=== PATIENT | female | born 1955 | race Caucasian/White ===

== ENCOUNTER 2020-03-20 06:20 | Day surgery (SDC) | payer MEDICAID ==
[2020-03-20] MEDS ORDERED: Sodium Chloride 0.9% 1,000 ML IV SCH (07:10)
[2020-03-20] MEDS ORDERED: Midazolam 1 MG/ML 2 ML SDV ONE (07:32)
[2020-03-20] MEDS ORDERED: Propofol 200 MG/20 ML SDV ONE (07:32)
[2020-03-20] MEDS ORDERED: fentaNYL 100 MCG/2 ML SDV ONE (07:32)
[2020-03-20] MEDS ORDERED: Ondansetron 4 MG/2 ML SDV ONE (07:32)
--- NOTE | 2020-03-20 10:05 | OR ---
DATE OF PROCEDURE: 03/20/2020 SURGEON: Lloyd Moreno MD PROCEDURE: Colonoscopy. FINDINGS: Ascending colon polyp of approximately 5 mm, completely removed using cold biopsy forceps. COMPLICATION: None. CONSTRUCTION ASSISTANT: None. ANESTHESIA: MAC. PREOPERATIVE DIAGNOSIS: Screening colonoscopy. POSTOPERATIVE DIAGNOSIS: Screening colonoscopy. RISKS: Risks, benefits, alternatives, and limitations including, but not limited to, infection, bleeding, and perforation were explained to the patient who wished to proceed. PROCEDURE IN DETAIL: The patient was placed left lateral decubitus position. Digital rectal exam was performed without abnormality. Scope was introduced and advanced atraumatically to the ileocecal valve. The scope was brought back through the ascending, transverse, descending colon, and retroflexed. No evidence of old or new blood. No masses. The aforementioned polyp was identified and completely removed using cold biopsy forceps. No abnormalities on retroflex. The patient tolerated the procedure well. Lloyd Moreno MD /[id number]
== END 2020-03-20 09:40 | disposition home or self-care (01) ==
LOC: JP.SDS 06:20
PROVIDERS: ATTEND Surgery
DX: Z12.11 Encounter for screening for malignant neoplasm of colon (principal); D12.2 Benign neoplasm of ascending colon; I10 Essential (primary) hypertension; E66.9 Obesity, unspecified; K21.9 Gastro-esophageal reflux disease without esophagitis; Z68.36 Body mass index [BMI] 36.0-36.9, adult
CPT/HCPCS: 45380; J2250; J2405; J2704; J3010; J7030; 88305

== ENCOUNTER 2020-08-17 09:06 | Emergency (ER) | payer MEDICAID ==
--- NOTE | 2020-08-17 11:06 | EDM.PDOC ---
ED HPI GENERAL MEDICAL PROBLEM - General Chief Complaint: General Stated Complaint: MAYBE COVID?? Time Seen by Provider: 08/17/20 10:59 Source of Information: Reports: Patient History Limitations: Reports: No Limitations - History of Present Illness INITIAL COMMENTS - FREE TEXT/NARRATIVE: pt had a fever for 3 days early last week. She has not had a fever now. Her is covid positive. She appears to have some sinus congestion. Onset: Gradual Duration: Hour(s): Location: Reports: Head, Face Associated Symptoms: Reports: Other ( mainly nasal ans sinus type congestion) - Related Data Allergies Allergy/AdvReac Type Severity Reaction Status Date / Time No Known Allergies Allergy Verified 03/20/20 06:46 Home Meds: Home Meds Calcium Carbonate 600 mg PO DAILY 03/04/14 [History] Ibuprofen [Advil] 200 mg PO Q6H PRN 03/04/14 [History] Lisinopril [Zestril] 10 mg PO DAILY 03/04/14 [History] Rosuvastatin Calcium 10 mg PO DAILY 03/10/20 [History] Past Medical History Cardiovascular History: Reports: High Cholesterol, Hypertension Gastrointestinal History: Reports: Other (See Below) Other Gastrointestinal History: heartburn BULB SORTER History: Reports: , Other (See Below) Other BULB SORTER History: ovarian cyst Musculoskeletal History: Reports: Other (See Below) Other Musculoskeletal History: bilateral shoulder and left knee pain Endocrine/Metabolic History: Reports: Obesity/BMI 30+ - Infectious Disease History Infectious Disease History: Reports: Chicken Pox - Past Surgical History Head Surgeries/Procedures: Reports: None GI Surgical History: Reports: Colonoscopy Female Surgical History: Reports: Hysterectomy, Other (See Below) Other Female Surgeries/Procedures: bladder lift Musculoskeletal Surgical History: Reports: Knee Replacement Social & Family History - Tobacco Use Smoking Status *Q: Never Smoker - Caffeine Use Caffeine Use: Reports: Coffee, Soda - Recreational Drug Use Recreational Drug Use: No ED ROS GENERAL - Review of Systems Review Of Systems: See Below Constitutional: Reports: Fever HEENT: Reports: Sinus Problem Respiratory: Reports: No Symptoms Cardiovascular: Reports: No Symptoms Endocrine: Reports: No Symptoms GI/Abdominal: Reports: No Symptoms : Reports: No Symptoms Musculoskeletal: Reports: No Symptoms Skin: Reports: No Symptoms ED EXAM, GENERAL - Physical Exam Exam: See Below Free Text/Narrative:: pt arrived with a history of sinus congestion,. Early last week she ran a temp for 2-3 days. She no longer has a fever. Her was covid positive. Exam Limited By: No Limitations General Appearance: Alert Ears: Normal TMs Nose: Normal Inspection Throat/Mouth: Normal Inspection Head: Atraumatic Neck: Normal Inspection Respiratory/Chest: No Respiratory Distress Course - Vital Signs Last Recorded V/S: Last Vital Signs Temp 35.5 C L 08/17/20 09:13 Pulse 86 08/17/20 09:13 Resp 18 08/17/20 09:13 BP 157/101 H 08/17/20 09:13 Pulse Ox 96 08/17/20 09:13 - Orders/Labs/Meds Orders: Active Orders 24 hr Category Date Time Status CORONAVIRUS COVID-19, AVTAR Stat Lab 08/17/20 10:58 Ordered CULTURE URINE [RM] Stat Lab 08/17/20 10:40 Received Labs: Laboratory Tests 08/17/20 08/17/20 08/17/20 Range/Units 09:33 09:48 09:48 WBC 5.0 (4.5-11.0) K/uL RBC 4.51 (3.30-5.50) M/uL Hgb 14.0 (12.0-15.0) g/dL Hct 43.8 (36.0-48.0) % MCV 97 (80-98) fL MCH 31 (27-31) pg MCHC 32 (32-36) % Plt Count 231 (150-400) K/uL Neut % (Auto) 51 (36-66) % Lymph % (Auto) 38 (24-44) % [place] % (Auto) 9 H (2-6) % Eos % (Auto) 2 (2-4) % Baso % (Auto) 0 (0-1) % Sodium 138 L (140-148) mmol/L Potassium 3.9 (3.6-5.2) mmol/L Chloride 103 (100-108) mmol/L Carbon Dioxide 28 (21-32) mmol/L Anion Gap 10.9 (5.0-14.0) mmol/L BUN 9 (7-18) mg/dL Creatinine 1.0 (0.6-1.0) mg/dL Est Cr Clr Drug Dosing 51.14 mL/min Estimated GFR (MDRD) 56 L (>60) Glucose 123 H (74-106) mg/dL Calcium 8.8 (8.5-10.1) mg/dL Total Bilirubin 0.4 (0.2-1.0) mg/dL AST 20 (15-37) U/L ALT 26 (12-78) U/L Alkaline Phosphatase 66 (46-116) U/L Total Protein 7.0 (6.4-8.2) g/dL Albumin 3.7 (3.4-5.0) g/dL Globulin 3.3 (2.3-3.5) g/dL Albumin/Globulin Ratio 1.1 L (1.2-2.2) Urine Color Yellow (YELLOW) Urine Appearance Slightly cloudy A (CLEAR) Urine pH 6.5 (5.0-8.0) Ur Specific [place] > 1.030 (1.008-1.030) Urine Protein Negative (NEGATIVE) mg/dL Urine Glucose (UA) Negative (NEGATIVE) mg/dL Urine Ketones Negative (NEGATIVE) mg/dL Urine Occult Blood Trace-intact H (NEGATIVE) Urine Nitrite Negative (NEGATIVE) Urine Bilirubin Negative (NEGATIVE) Urine Urobilinogen 0.2 (0.2-1.0) EU/dL Ur Leukocyte Esterase Trace H (NEGATIVE) Urine RBC 0-5 (0-5) Urine WBC 5-10 H (0-5) Ur Epithelial Cells Moderate Amorphous Sediment Occasional Urine Bacteria Moderate Urine Mucus Rare - Re-Assessments/Exams Free Text/Narrative Re-Assessment/Exam: 08/17/20 11:02 wbc is not elevated. Her chems look good, she does not have a fever. 08/17/20 11:03 pt will have a covid send out test today. Departure - Departure Time of Disposition: 11:03 Disposition: Home, Self-Care 01 Condition: Fair Clinical Impression: Nasal congestion - Discharge Information Referrals: PCP,None [Primary Care Provider] - Care Plan Goals: will notify of the covid test, push fluids tylenol and motrin. Sepsis Event Note (ED) - Evaluation Sepsis Screening Result: No Definite Risk - Focused Exam Vital Signs: Vital Signs Temp Pulse Resp BP Pulse Ox 08/17/20 09:13 35.5 C L 86 18 157/101 H 96 - My Orders Last 24 Hours: My Active Orders 08/17/20 10:40 CULTURE URINE [RM] Stat 08/17/20 10:58 CORONAVIRUS COVID-19, AVTAR Stat - Assessment/Plan Last 24 Hours: My Active Orders 08/17/20 10:40 CULTURE URINE [RM] Stat 08/17/20 10:58 CORONAVIRUS COVID-19, AVTAR Stat
== END 2020-08-17 11:23 | disposition home or self-care (01) ==
LOC: JP.ED 09:06
DX: R09.81 Nasal congestion (principal); E78.00 Pure hypercholesterolemia, unspecified; I10 Essential (primary) hypertension; E66.9 Obesity, unspecified; Z68.37 Body mass index [BMI] 37.0-37.9, adult; Z20.828 Contact with and (suspected) exposure to other viral communicable diseases
CPT/HCPCS: 36415; 80053; 81001; 85025; 87086; 87088; 87186; 99283; U0002

== ENCOUNTER 2022-11-14 07:27 | Inpatient (IN) | payer MEDICARE ==
[~2022-11-14 07:27] MED LIST: Bupivacaine 0.5% 30 ML SDV ONE
[2022-11-14] MEDS ORDERED: Nozin Nasal Sanitizer NASBOTH ONE (07:30)
[2022-11-14] MEDS ORDERED: fentaNYL 100 MCG/2 ML SDV ONE (07:53)
[2022-11-14] MEDS ORDERED: Propofol 200 MG/20 ML SDV ONE ×2 (07:53→10:53)
[2022-11-14] MEDS ORDERED: Midazolam 1 MG/ML 2 ML SDV ONE (07:53)
[2022-11-14] MEDS ORDERED: Lactated Ringers 1,000 ML IV SCH (08:00)
[2022-11-14] MEDS ORDERED: ceFAZolin 2 GM in Sodium Chloride 0.9% 50 ML IV ONE (08:00)
[2022-11-14] MEDS ORDERED: ceFAZolin 2 GM in Sodium Chloride 0.9% 100 ML IV ONE (08:00)
[2022-11-14 08:10] LABS: ESTIMATED GFR 71 mL/min (>60)
[2022-11-14] MEDS ORDERED: Ondansetron 4 MG/2 ML SDV ONE (10:34)
[2022-11-14] MEDS ORDERED: Lactated Ringers 1,000 ML ONE (11:10)
[2022-11-14] MEDS ORDERED: Magnesium Hydroxide 400 MG/5 ML Susp 30 ML Cup PO PRN (12:00)
[2022-11-14] MEDS ORDERED: traMADol 50 MG Tab PO PRN (12:00)
[2022-11-14] MEDS ORDERED: Morphine 2 MG/ML SYRINGE IVPUSH PRN (12:00)
[2022-11-14] MEDS ORDERED: Ondansetron 4 MG/2 ML SDV IVPUSH PRN (12:00)
[2022-11-14] MEDS ORDERED: oxyCODONE 5 MG Tab PO PRN (12:06)
[2022-11-14] MEDS: Acetaminophen 325 MG Tab PO SCH ×2 (13:24→18:03)
[2022-11-14] MEDS: Ketorolac 15 MG/ML SDV IVPUSH SCH ×2 (13:24→21:10)
[2022-11-14] MEDS: ceFAZolin 1 GM in Premix Bag 1 BAG IV SCH (17:10)
[2022-11-14] MEDS: Sodium Chloride 0.9% 1,000 ML IV SCH (18:05)
[2022-11-14] MEDS ORDERED: Nozin Nasal Sanitizer NASBOTH SCH (21:00)
[2022-11-14] MEDS: Docusate Sodium 100 MG Cap PO SCH (21:08)
[2022-11-14] MEDS: Nozin Nasal Sanitizer NASBOTH SCH (22:11)
[2022-11-15] MEDS: Acetaminophen 325 MG Tab PO SCH ×4 (01:53→19:51)
[2022-11-15] MEDS: ceFAZolin 1 GM in Premix Bag 1 BAG IV SCH (01:54)
[2022-11-15] MEDS: Sodium Chloride 0.9% 1,000 ML IV SCH (02:04)
[2022-11-15] MEDS: Ketorolac 15 MG/ML SDV IVPUSH SCH ×2 (05:50→13:19)
[2022-11-15] MEDS: Nozin Nasal Sanitizer NASBOTH SCH ×2 (08:43→21:18)
[2022-11-15] MEDS: Lisinopril 10 MG Tab PO SCH (08:43)
[2022-11-15] MEDS: Docusate Sodium 100 MG Cap PO SCH ×2 (08:43→21:18)
[2022-11-15] MEDS: Rosuvastatin 10 MG Tab PO SCH (08:43)
[2022-11-16] MEDS: Acetaminophen 325 MG Tab PO SCH ×2 (02:07→08:10)
[2022-11-16] MEDS: Rosuvastatin 10 MG Tab PO SCH (08:11)
[2022-11-16] MEDS: Docusate Sodium 100 MG Cap PO SCH (08:11)
[2022-11-16] MEDS: Nozin Nasal Sanitizer NASBOTH SCH (08:11)
[2022-11-16] MEDS: Lisinopril 10 MG Tab PO SCH (08:11)
== END 2022-11-16 11:30 | disposition home or self-care (01) | DRG 470 ==
LOC: JP.SDS 07:27 → JP.MS 12:00 → JP.SDS 11-15 13:38 → JP.MS 11-15 13:40
PROVIDERS: ADMIT Specialist; ATTEND Specialist
PROC: 0SRD0J9 Replacement of Left Knee Joint with Synthetic Substitute, Cemented, Open Approach (ICD-10-PCS; principal; 2022-11-14)
DX: M17.12 Unilateral primary osteoarthritis, left knee (principal); I10 Essential (primary) hypertension; E78.5 Hyperlipidemia, unspecified; E66.9 Obesity, unspecified; Z79.899 Other long term (current) drug therapy
CPT/HCPCS: 36415; 73560-LT; 80053; 85027; 97110-GP; 97116-GP; 97161-GP; 97165-GO; 97530-GP; 97535-GO; A9270-GY; C1713; C1776; J0690; J1885; J2250; J2405; J2704; J3010; J3490; J7030; J7120

== ENCOUNTER 2023-07-05 05:55 | Day surgery (SDC) | payer MEDICARE ==
[2023-07-05 06:20] LABS: HEMATOCRIT 39.9 % (34.3-46.0); HEMOGLOBIN 13.7 g/dL (11.2-15.5); MEAN CORPUSCULAR HEMOGLOBIN 32.6 pg (31.6-35.5); MEAN CORPUSCULAR HGB CONC 34.3 g/dL (31.6-35.5); RED BLOOD CELL COUNT 4.2 M/uL (3.77-5.24); WHITE BLOOD CELL COUNT,WBC 6.1 K/uL (3.2-11.0)
[2023-07-05] MEDS ORDERED: Nozin Nasal Sanitizer NASBOTH ONE (06:30)
[2023-07-05] MEDS ORDERED: Lactated Ringers 1,000 ML IV SCH (06:30)
[2023-07-05 06:36] LABS: A/G RATIO 1.1 (1.2-2.2); ALANINE AMINOTRANSFERASE,ALT 28 U/L (12-78); ALBUMIN 3.7 g/dL (3.4-5.0); ALKALINE PHOSPHATASE 99 U/L (46-116); ASPARTATE AMNIOTRANSFERASE,AST 17 U/L (15-37); BILIRUBIN TOTAL 0.6 mg/dL (0.2-1.0); BLOOD UREA NITROGEN,BUN 16 mg/dL (7-18); CALCIUM 8.6 mg/dL (8.5-10.1); CARBON DIOXIDE,CO2 27 mmol/L (21-32); CHLORIDE,CL 104 mmol/L (100-108); CREATININE 0.9 mg/dL (0.6-1.0); ESTIMATED GFR 70 mL/min (>60); GLUCOSE RANDOM 137 mg/dL (74-106); POTASSIUM,K 3.9 mmol/L (3.6-5.2); SODIUM,NA 139 mmol/L (140-148)
[2023-07-05 06:39] LABS: ANION GAP 11.9 mmol/L (5.0-14.0)
[2023-07-05] MEDS ORDERED: Bupivacaine 0.5% 30 ML SDV ONE (06:56)
[2023-07-05] MEDS ORDERED: ceFAZolin 2 GM in Premix Bag 1 BAG IV ONE (07:00)
[2023-07-05] MEDS ORDERED: Propofol 200 MG/20 ML SDV ONE (07:23)
[2023-07-05] MEDS ORDERED: Midazolam 1 MG/ML 2 ML SDV ONE (07:23)
[2023-07-05] MEDS ORDERED: fentaNYL 100 MCG/2 ML SDV ONE (07:23)
[2023-07-05] MEDS ORDERED: fentaNYL 100 MCG/2 ML SDV IV ONE (07:59)
== END 2023-07-05 10:45 | disposition home or self-care (01) ==
LOC: JP.SDS 05:55
PROVIDERS: ATTEND Specialist
DX: M65.862 Other synovitis and tenosynovitis, left lower leg (principal); M22.8X2 Other disorders of patella, left knee; E78.5 Hyperlipidemia, unspecified; M25.862 Other specified joint disorders, left knee
CPT/HCPCS: 29873; 36415; 80053; 85027; A9270; J2250; J2704; J3010; J3490; J7120

== ENCOUNTER 2024-01-02 10:24 | Emergency (ER) | payer MEDICARE | END 2024-01-02 11:47 | disposition home or self-care (01) | LOC: JP.ED 10:24 | DX: I10 Essential (primary) hypertension (principal); E78.00 Pure hypercholesterolemia, unspecified; E11.9 Type 2 diabetes mellitus without complications; E66.9 Obesity, unspecified; Z68.35 Body mass index [BMI] 35.0-35.9, adult; Z86.16 Personal history of COVID-19; Z79.82 Long term (current) use of aspirin; Z79.899 Other long term (current) drug therapy; Z90.710 Acquired absence of both cervix and uterus | CPT/HCPCS: 99283 ==

== ENCOUNTER 2025-03-05 06:55 | Day surgery (SDC) | payer MEDICARE ==
[2025-03-05] MEDS ORDERED: Ondansetron 4 MG/2 ML SDV ONE (07:34)
[2025-03-05] MEDS ORDERED: fentaNYL 50 MCG/ML SDV ONE (07:34)
[2025-03-05] MEDS ORDERED: Midazolam 1 MG/ML 2 ML SDV ONE (07:34)
[2025-03-05] MEDS ORDERED: Propofol 200 MG/20 ML SDV ONE (07:34)
[2025-03-05] MEDS: Lactated Ringers 1,000 ML IV SCH (07:43)
== END 2025-03-05 10:20 | disposition home or self-care (01) ==
LOC: JP.SDS 06:55
PROVIDERS: ATTEND Surgery
DX: Z12.11 Encounter for screening for malignant neoplasm of colon (principal); D12.5 Benign neoplasm of sigmoid colon; K57.30 Diverticulosis of large intestine without perforation or abscess without bleeding; K21.9 Gastro-esophageal reflux disease without esophagitis; I10 Essential (primary) hypertension; Z86.0100 Personal history of colon polyps, unspecified
CPT/HCPCS: 00811; 45385; 88305; J2250; J2405; J2704; J3010; J7120